=== PATIENT | female | born 1970 | race Caucasian/White ===

== ENCOUNTER 2021-07-01 13:41 | Emergency (ER) | payer OTHER ==
[~2021-07-01] VITALS: Ht 157.5 cm; Wt 68.0 kg
[~2021-07-01 13:41] MED LIST: ALBUTEROL2.5 MG/0.1 INH; OXYCODONE HCL 55 MG PO; ULTRAM 50MG TAB50 MG PO; VALIUM5 MG PO
[2021-07-01] MEDS ORDERED: CLONAZEPAM 0.50.5 M1 PO (15:40)
[2021-07-01 15:56] VITALS: BP 129/80
== END 2021-07-01 15:57 | disposition home or self-care (01) ==
LOC: ER 13:41
DX: F11.23 Opioid dependence with withdrawal (principal); Z98.890 Other specified postprocedural states; Z79.1 Long term (current) use of non-steroidal anti-inflammatories (NSAID); Z79.51 Long term (current) use of inhaled steroids; Z79.899 Other long term (current) drug therapy; Z88.5 Allergy status to narcotic agent; Z88.6 Allergy status to analgesic agent; Z88.8 Allergy status to other drugs, medicaments and biological substances

== ENCOUNTER 2021-11-06 10:27 | Emergency (ER) | payer OTHER ==
[~2021-11-06] VITALS: Ht 165.1 cm; Wt 63.5 kg
[~2021-11-06 10:27] MED LIST changes: +CLONAZEPAM 0.50.5 M1 PO
[2021-11-06 10:36] VITALS: BP 117/71
[2021-11-06] MEDS ORDERED: OXYCODONE-APAP1 EAC4 PO (11:00)
== END 2021-11-06 12:27 | disposition home or self-care (01) ==
LOC: ER 10:27
PROVIDERS: Nurse Practitioner
DX: B34.9 Viral infection, unspecified (principal); Z20.822 Contact with and (suspected) exposure to COVID-19; Z88.5 Allergy status to narcotic agent; Z88.6 Allergy status to analgesic agent; Z88.8 Allergy status to other drugs, medicaments and biological substances; Z79.899 Other long term (current) drug therapy; Z86.73 Personal history of transient ischemic attack (TIA), and cerebral infarction without residual deficits